=== PATIENT | female | born 1950 ===

== ENCOUNTER 2017-08-20 17:19 | Inpatient (IN) | payer MEDICARE ==
[2017-08-20] MEDS ORDERED: Sodium Chloride 0.9% 1,000 ML IV STA (18:03)
[2017-08-20 18:04] LABS: VENOUS BLOOD GAS PCO2 51 mmHg (40-60); VENOUS BLOOD GAS PO2 31 mm/Hg (30-55)
--- NOTE | 2017-08-20 18:07 | CT ---
EXAM: CT Head Without Intravenous Contrast CLINICAL HISTORY: 67 years old, female; Injury or trauma; Fall; Initial encounter; Laceration; With loss of consciousness; Not specified; Without residual foreign body; Head, generalized; Injury date: Earlier today; Patient HX: EVA; Additional info: AMS fall head injury TECHNIQUE: Axial computed tomography images of the head/brain without intravenous contrast. All CT scans at this facility use one or more dose reduction techniques, viz.: automated exposure control; ma/kV adjustment per patient size (including targeted exams where dose is matched to indication; i.e. head); or iterative reconstruction technique. Coronal and sagittal reformatted images were created and reviewed. COMPARISON: No relevant prior studies available. FINDINGS: Brain: Mild atrophy. No intracranial hemorrhage. No mass. No edema. Ventricles: No hydrocephalus. Bones/joints: No acute fracture. Soft tissues: Unremarkable. Vasculature: Mild atherosclerotic disease of intracranial arteries. Sinuses: No acute sinusitis. Mastoid air cells: No mastoid effusion. Orbits: Unremarkable as visualized. IMPRESSION: 1. No intracranial hemorrhage. 2. Incidental/non-acute findings are described above.
[2017-08-20 18:21] LABS: BASO % 0.1 % (0.0-2.0); HEMOGLOBIN 13.8 g/dL (12.0-16.0); LYMPH # 1.8 K/uL (1.0-4.3); LYMPH % 11.3 % (20.0-40.0); MEAN CELL VOLUME 90.6 fl (81.0-99.0); MEAN CORPUSCULAR HEMOGLOBIN 30.2 pg (27.0-31.0); MEAN CORPUSCULAR HGB CONC 33.3 g/dL (33.0-37.0); MEAN PLATELET VOLUME 8.5 fl (7.2-11.7); MONO % 6.7 % (0.0-10.0); NEUT # 12.7 K/uL (1.8-7.0); NEUT % 81.9 % (50.0-75.0); NRBC % 0.2 % (0.0-0.0); RBC 4.59 Mil/uL (3.80-5.20); RED CELL DISTRIBUTION WIDTH 12.6 % (11.5-14.5); WHITE BLOOD COUNT 15.5 K/uL (4.8-10.8)
[2017-08-20 18:30] LABS: ALB/GLOB RATIO 1.3 (1.0-2.1); ALBUMIN 4.3 g/dL (3.5-5.0); ALT/SGPT 54 U/L (9-52); AST/SGOT 39 U/L (14-36); BLOOD UREA NITROGEN 16 mg/dl (7-17); CALCIUM 9.6 mg/dL (8.4-10.2); GFR AFRICAN-AMERICAN > 60; GFR NON-AFRICAN AMERICAN 55
[2017-08-20 18:35] LABS: PROTHROMBIN TIME 10.8 Seconds (9.8-13.1)
[2017-08-20 18:36] LABS: PARTIAL THROMBOPLASTIN TIME 26.5 Seconds (25.6-37.1)
--- NOTE | 2017-08-20 20:01 | ED PDOC ---
Syncope/Near Syncope/Dizziness Time Seen by Provider: 08/20/17 17:39 Chief Complaint (Nursing): Syncope Chief Complaint (Provider): Syncope and head injury History Per: Patient History/Exam Limitations: no limitations Additional Complaint(s): Lalitha Bray, a 67 year old female brought into the Emergency Department by ambulance complaining of head injury and loss of consciousness after falling while getting into the showers. Reports she was feeling confused in the morning and felt weak too. The patient also has vomited about a week ago and has watery- like diarrhea. Denies fever or chest pain. PMD: Zunilda Steele Past Medical History Reviewed: Historical Data, Nursing Documentation, Vital Signs Vital Signs: Last Vital Signs Temp 96.6 F L 08/20/17 17:39 Pulse 87 08/20/17 19:05 Resp 16 08/20/17 19:05 BP 114/62 08/20/17 19:05 Pulse Ox 100 08/20/17 19:05 - Medical History PMH: Anxiety, HTN, Hyperlipidemia, Hyperthyroidism, Hypothyroidism, Osteoporosis - Surgical History Surgical History: Tonsillectomy - Family History Family History: States: Unknown Family Hx - Social History Alcohol: None Drugs: Denies - Home Medications Home Medications: Ambulatory Orders Medication Instructions Recorded Cholecalciferol (Vitamin D3) 1 tab PO DAILY 08/20/17 [D3-5000 90 mg-5000 Iu] Fenofibrate [Triglide] 160 mg PO DAILY 08/20/17 Losartan/Hydrochlorothiazide 1 each PO DAILY 08/20/17 [Losartan-Hctz 100-25 mg Tab] Metoprolol Succinate [Toprol XL] 50 mg PO DAILY 08/20/17 - Allergies Allergies/Adverse Reactions: Allergies Allergy/AdvReac Type Severity Reaction Status Date / Time No Known Allergies Allergy Verified 08/20/17 17:22 Review of Systems ROS Statement: Except As Marked, All Systems Reviewed And Found Negative Constitutional: Negative for: Fever, Chills Gastrointestinal: Positive for: Vomiting (1 week), Diarrhea (watery-like ) Neurological: Positive for: Weakness, Confusion Physical Exam - Reviewed Nursing Documentation Reviewed: Yes Vital Signs Reviewed: Yes - Physical Exam Appears: Positive for: Well, Non-toxic, No Acute Distress Head Exam: Positive for: ATRAUMATIC, NORMAL INSPECTION, NORMOCEPHALIC Skin: Positive for: Normal Color, Warm, Dry, Pallor Eye Exam: Positive for: Normal appearance, EOMI, PERRL ENT: Positive for: Normal ENT Inspection Neck: Positive for: Normal, Painless ROM Cardiovascular/Chest: Positive for: Regular Rate, Rhythm. Negative for: Murmur Respiratory: Positive for: Normal Breath Sounds. Negative for: Respiratory Distress Gastrointestinal/Abdominal: Positive for: Normal Exam Back: Positive for: Normal Inspection Extremity: Positive for: Normal ROM. Negative for: Deformity Neurologic/Psych: Positive for: Alert, Oriented (x3) - Laboratory Results Result Diagrams: 08/20/17 18:08 08/20/17 18:08 - ECG ECG: Positive for: Interpreted By Me, Viewed By Me ECG Rhythm: Positive for: Normal QRS, Normal ST Segment. Negative for: ST/T Changes Interpretation Of Abn EKG: left axis deviation Rate: 74 O2 Sat by Pulse Oximetry: 100 (RA) Pulse Ox Interpretation: Normal Medical Decision Making Medical Decision Making: Time: 17:41 Initial Impression: acute diarrhea, syncope, and head injury Differential Diagnosis includes but is not limited to: hypovolemic, shock with orthostatic, syncope, intracranial bleeding, and bacterial or viral diarrhea Initial Plan: --VBG Shock PANEL --Abdomen & Pelvis CT scan --Head W/O Contrast CT scan --EKG --Alcohol serum --CMP --Drug Screen --Troponin I --CBC --PPT --Prothrombin Time --Imodium 2mg PO --Normal Saline 1,000ml IV 1,000mls/hr --Normal Saline 125ml IV 125mls/hr --Blood culture --Reevaluation Patient was able to respond 30 minutes after recovering from syncope and dizziness Time: 21:19 FINDINGS: Brain: Mild atrophy. No intracranial hemorrhage. No mass. No edema. Ventricles: No hydrocephalus. Bones/joints: No acute fracture. Soft tissues: Unremarkable. Vasculature: Mild atherosclerotic disease of intracranial arteries. Sinuses: No acute sinusitis. Mastoid air cells: No mastoid effusion. Orbits: Unremarkable as visualized. IMPRESSION: 1. No intracranial hemorrhage. 2. Incidental/non-acute findings are described above. Dictated By: Leandro Laguna MD Dictated Date/Time: 08/20/171806 Signed By: Leandro Laguna MD Date Signed: 1806 Transcribed By: LUZ Transcribe Date/Time : 08/20/171806 ACYP02/CLIFFORD Time: 21:19 FINDINGS: Limitations: Lack of intravenous contrast. Lower thorax: Mild cardiomegaly. Trace bilateral pleural effusions and/or thickening. Minimal atelectasis/scarring. Moderate-sized hiatal hernia. ABDOMEN: Liver: Unremarkable. Gallbladder and bile ducts: Calcified gallstones. No significant ductal dilation. Pancreas: Unremarkable. No ductal dilation. Spleen: No splenomegaly. Adrenals: No mass. Kidneys and ureters: No renal calculi. No hydronephrosis. Stomach and bowel: Segmental areas of mild mural thickening vs underdistention of large bowel. Mild stranding about descending and proximal sigmoid colon. No obstruction. Appendix: Normal caliber. No inflammation. PELVIS: Bladder: Unremarkable. No stones. Reproductive: Unremarkable as visualized. ABDOMEN and PELVIS: Intraperitoneal space: Small free fluid within pelvis. No free air. Bones/joints: No acute fracture. Soft tissues: Unremarkable. Vasculature: Minimal atherosclerotic disease. No aneurysm. Lymph nodes: No pathologically enlarged lymph nodes. IMPRESSION: 1. Colitis, nonspecific. Consider inflammatory, infectious or ischemic etiologies. 2. Incidental/non-acute findings are described above. Dictated By: Leandro Laguna MD Dictated Date/Time: 08/20/172053 Signed By: Leandro Laguna MD Date Signed: 2053 Transcribed By: LUZ Transcribe Date/Time : 08/20/172053 Scribe Attestation: Documented by Marti Simmons, acting as a scribe for Ladonna Agosto MD Provider Scribe Attestation: All medical record entries made by the Scribe were at my direction and personally dictated by me. I have reviewed the chart and agree that the record accurately reflects my personal performance of the history, physical exam, medical decision making, and the department course for this patient. I have also personally directed, reviewed, and agree with the discharge instructions and disposition. Disposition - Clinical Impression Clinical Impression: Syncope, Colitis, Hypovolemic shock - Patient ED Disposition Is Patient to be Admitted: Yes Discussed With : Mary Joseph Doctor Will See Patient In The: ED Counseled Patient/Family Regarding: Studies Performed, Diagnosis - Disposition Disposition Time: 21:00 Condition: FAIR - Pt Status Changed To: Hospital Disposition Of: Inpatient - Admit Certification Admit to Inpatient:: After my assessment, the patient will require hospitalization for at least two midnights. This is because of the severity of symptoms shown, intensity of services needed, and/or the medical risk in this patient being treated as an outpatient. - POA Present On Arrival: Falls Or Trauma
[2017-08-20] MEDS ORDERED: Piperacillin/Tazobact 3.375 GM in Sodium Chloride 0.9% 100 ML IVPB STA (20:50)
--- NOTE | 2017-08-20 20:54 | CT ---
EXAM: CT Abdomen and Pelvis Without Intravenous Contrast CLINICAL HISTORY: 67 years old, female; Injury or trauma; Fall; Initial encounter; Laceration; Foreign body involvement not specified; Generalized, abdominal; Injury date: Today; Injury details: Falling off the shower. Disoriented abd pain n v d; Additional info: Diarrhea abdominal pain TECHNIQUE: Axial computed tomography images of the abdomen and pelvis without intravenous contrast. All CT scans at this facility use one or more dose reduction techniques, viz.: automated exposure control; ma/kV adjustment per patient size (including targeted exams where dose is matched to indication; i.e. head); or iterative reconstruction technique. COMPARISON: US - ABDOMEN COMPLETE 2015-06-27 07:54 FINDINGS: Limitations: Lack of intravenous contrast. Lower thorax: Mild cardiomegaly. Trace bilateral pleural effusions and/or thickening. Minimal atelectasis/scarring. Moderate-sized hiatal hernia. ABDOMEN: Liver: Unremarkable. Gallbladder and bile ducts: Calcified gallstones. No significant ductal dilation. Pancreas: Unremarkable. No ductal dilation. Spleen: No splenomegaly. Adrenals: No mass. Kidneys and ureters: No renal calculi. No hydronephrosis. Stomach and bowel: Segmental areas of mild mural thickening vs underdistention of large bowel. Mild stranding about descending and proximal sigmoid colon. No obstruction. Appendix: Normal caliber. No inflammation. PELVIS: Bladder: Unremarkable. No stones. Reproductive: Unremarkable as visualized. ABDOMEN and PELVIS: Intraperitoneal space: Small free fluid within pelvis. No free air. Bones/joints: No acute fracture. Soft tissues: Unremarkable. Vasculature: Minimal atherosclerotic disease. No aneurysm. Lymph nodes: No pathologically enlarged lymph nodes. IMPRESSION: 1. Colitis, nonspecific. Consider inflammatory, infectious or ischemic etiologies. 2. Incidental/non-acute findings are described above.
[2017-08-20] MEDS ORDERED: Ciprofloxacin 400mg/200ml D5W 400 MG/200 ML BAG IVPB STA (21:21)
[2017-08-20] MEDS ORDERED: metroNIDAZOLE 500mg/100ml NS 100 ML IVPB STA (21:22)
--- NOTE | 2017-08-20 21:23 | CP.PCM.HP ---
History of Present Illness - History of Present Illness History of Present Illness: CC: n/v/d, syncope HPI: This is a 67 y/o female with MHx of HTN, HLD, and hypothyroid who came in via EMS after a fall and LOC in shower this evening. Patient has had n/v/d and abd discomfort for a week, and she had been feeling more and more weak overall by today, as well as confused. Her v/d was nb/nb. Denies f/c. Denies CP/SOB. Denies any focal weakness. Never had syncope in the past. PMD: Merle Otoniel-Matilda ROS: 14 systems reviewed, negative other than HPI MHx: HTN, HLD, hypothyroid, osteoporosis SHx: Tonsillectomy Allergies: NKDA Medications: as per med rec, pending Family Hx: Reviewed, patient unaware of any significant family hx Social Hx: Lives with family, no tobacco, no EtOH Surrogate Dec Mkr: , info in chart Present on Admission - Present on Admission Any Indicators Present on Admission: No Past Patient History - Past Social History Alcohol: None Drugs: Denies - CARDIAC Hx Hypertension: Yes - ENDOCRINE/METABOLIC Hx Hyperthyroidism: Yes Hx Hypothyroidism: Yes - MUSCULOSKELETAL/RHEUMATOLOGICAL Hx Osteoporosis: Yes - PSYCHIATRIC Hx Anxiety: Yes - SURGICAL HISTORY Hx Tonsillectomy: Yes - ANESTHESIA Hx Anesthesia: Yes Hx Anesthesia Reactions: No Meds Allergies/Adverse Reactions: Allergies Allergy/AdvReac Type Severity Reaction Status Date / Time No Known Allergies Allergy Verified 08/20/17 17:22 Physical Exam - Constitutional Appears: No Acute Distress - Head Exam Head Exam: ATRAUMATIC, NORMOCEPHALIC - Eye Exam Eye Exam: EOMI, PERRL - ENT Exam ENT Exam: Mucous Membranes Dry - Neck Exam Neck exam: Positive for: Full Rom - Respiratory Exam Respiratory Exam: Clear to Auscultation Bilateral, NORMAL BREATHING PATTERN - Cardiovascular Exam Cardiovascular Exam: REGULAR RHYTHM, +S1, +S2 - GI/Abdominal Exam GI & Abdominal Exam: Normal Bowel Sounds, Soft - Extremities Exam Extremities exam: Positive for: full ROM, normal inspection - Neurological Exam Neurological exam: Alert, CN II-XII Intact, Oriented x3 - Psychiatric Exam Psychiatric exam: Normal Affect, Normal Mood - Skin Skin Exam: Dry, Warm Results - Vital Signs Recent Vital Signs: Last Vital Signs Temp 96.6 F L 08/20/17 17:39 Pulse 74 08/20/17 21:20 Resp 16 08/20/17 19:05 BP 114/62 08/20/17 19:05 Pulse Ox 100 08/20/17 21:20 - Labs Result Diagrams: 08/20/17 18:08 08/20/17 18:08 Labs: Laboratory Results - last 24 hr 08/20/17 08/20/17 08/20/17 17:58 18:08 18:08 WBC 15.5 H RBC 4.59 Hgb 13.8 Hct 41.6 MCV 90.6 MCH 30.2 MCHC 33.3 RDW 12.6 Plt Count 361 MPV 8.5 Neut % (Auto) 81.9 H Lymph % (Auto) 11.3 L [place] % (Auto) 6.7 Eos % (Auto) 0.0 Baso % (Auto) 0.1 Neut # 12.7 H Lymph # 1.8 [place] # 1.0 H Eos # 0.0 Baso # 0.0 PT INR APTT pO2 31 VBG pH 7.30 L VBG pCO2 51 VBG HCO3 22.1 VBG Total CO2 26.7 VBG O2 Sat (Calc) 61.7 VBG Base Excess -2.0 L VBG Potassium 3.6 Sodium 140.0 140 Chloride 100.0 103 Glucose 147 H Lactate 1.4 FiO2 21.0 Potassium 3.6 Carbon Dioxide 23 Anion Gap 18 BUN 16 Creatinine 1.0 Est GFR ( Amer) > 60 Est GFR (Non-Af Amer) 55 Random Glucose 160 H Calcium 9.6 Total Bilirubin 0.8 AST 39 H ALT 54 H Alkaline Phosphatase 78 Troponin I 0.0160 Total Protein 7.7 Albumin 4.3 Globulin 3.4 Albumin/Globulin Ratio 1.3 Venous Blood Potassium 3.6 Alcohol, Quantitative < 10 08/20/17 18:08 WBC RBC Hgb Hct MCV MCH MCHC RDW Plt Count MPV Neut % (Auto) Lymph % (Auto) [place] % (Auto) Eos % (Auto) Baso % (Auto) Neut # Lymph # [place] # Eos # Baso # PT 10.8 INR 1.0 APTT 26.5 pO2 VBG pH VBG pCO2 VBG HCO3 VBG Total CO2 VBG O2 Sat (Calc) VBG Base Excess VBG Potassium Sodium Chloride Glucose Lactate FiO2 Potassium Carbon Dioxide Anion Gap BUN Creatinine Est GFR ( Amer) Est GFR (Non-Af Amer) Random Glucose Calcium Total Bilirubin AST ALT Alkaline Phosphatase Troponin I Total Protein Albumin Globulin Albumin/Globulin Ratio Venous Blood Potassium Alcohol, Quantitative - EKG Data EKG Interpreted by: Myself EKG shows normal: Sinus rhythm Rate: Normal - Imaging and Cardiology CT scan - head Status: Image reviewed by me, Report reviewed by me (no acute findings) CT scan - abdomen Status: Image reviewed by me (Colitis), Report reviewed by me (Colitis) Assessment & Plan (1) Syncope and collapse Assessment and Plan: 67 y/o female with syncope/collapse in setting of vol depletion 2/2 colitis with n/v/d. 1) Syncope/Collapse -Rehydrate aggresively -Will check 1 more troponin -If symptoms still concerning after hydration, consider echo for further w/u of syncope 2) Colitis with n/v/d -Cont cipro/flagyl IV -IVF -Zofran for n/v IV, Tylenol for fever 3) HTN, HLD -- resume home medications 4) Hypothyroid -- resume home medications 5) DVT PPx -- SCDs Status: Acute (2) Colitis Status: Acute (3) HTN (hypertension) Status: Acute (4) HLD (hyperlipidemia) Status: Acute (5) DVT prophylaxis Status: Acute
[2017-08-20] MEDS ORDERED: Ciprofloxacin 400mg/200ml D5W 400 MG/200 ML BAG IVPB ONE (22:21)
[2017-08-21] MEDS: Sodium Chloride 0.9% 1,000 ML IV SCH ×2 (00:45→13:10)
[2017-08-21 05:21] LABS: HEMOGLOBIN 11.4 g/dL (12.0-16.0); MEAN CELL VOLUME 90.9 fl (81.0-99.0); MEAN CORPUSCULAR HEMOGLOBIN 30.5 pg (27.0-31.0); MEAN CORPUSCULAR HGB CONC 33.5 g/dL (33.0-37.0); RBC 3.73 Mil/uL (3.80-5.20); RED CELL DISTRIBUTION WIDTH 12.6 % (11.5-14.5); WHITE BLOOD COUNT 9.7 K/uL (4.8-10.8)
[2017-08-21 05:35] LABS: BLOOD UREA NITROGEN 11 mg/dl (7-17); CALCIUM 8.6 mg/dL (8.4-10.2); GFR AFRICAN-AMERICAN > 60; GFR NON-AFRICAN AMERICAN > 60
--- NOTE | 2017-08-21 08:22 | RAD ---
HISTORY: syncope COMPARISON: No prior. FINDINGS: LUNGS: No active pulmonary disease. PLEURA: No significant pleural effusion identified, no pneumothorax apparent. CARDIOVASCULAR: Borderline cardiomegaly versus technical magnification given portable technique. OSSEOUS STRUCTURES: No significant abnormalities. VISUALIZED UPPER ABDOMEN: Normal. OTHER FINDINGS: None. IMPRESSION: Likely technically enlarged cardiac silhouette. No pulmonary vascular derangement. No acute infiltrate, pleural effusion or pneumothorax identified bilaterally.
[2017-08-21] MEDS ORDERED: metroNIDAZOLE 500mg/100ml NS 100 ML IVPB SCH (09:00)
[2017-08-21] MEDS: Ciprofloxacin 400mg/200ml D5W 400 MG/200 ML BAG IVPB SCH ×2 (09:47→20:29)
--- NOTE | 2017-08-21 10:28 | CP.PCM.PN ---
Subjective - Date & Time of Evaluation Date of Evaluation: 08/21/17 Time of Evaluation: 10:00 - Subjective Subjective: No fever no nausea vomiting at present some abd discomfort diarrhea better refuses to eat bec she is scared she will have more diarrhea denies CP no SOB no headache no dizziness alert, oriented x 3 some right hip pain but able to do full ROM denies back pain Objective - Vital Signs/Intake and Output Vital Signs (last 24 hours): Temp Pulse Resp BP Pulse Ox 98.2 F 63 18 94/54 L 99 08/21/17 08:18 08/21/17 08:18 08/21/17 08:18 08/21/17 08:18 08/21/17 08:18 - Medications Medications: Current Medications Acetaminophen (Tylenol 325mg Tab) 650 mg PO Q6 PRN PRN Reason: Fever >100.4 F Alprazolam (Xanax) 0.25 mg PO Q12 PRN PRN Reason: Anxiety Stop: 08/28/17 09:14 Sodium Chloride (Sodium Chloride 0.9%) 1,000 mls @ 100 mls/hr IV .Q10H MARYURI Stop: 08/21/17 17:29 Last Admin: 08/21/17 00:45 Dose: 100 mls/hr Ciprofloxacin (Cipro 400mg/200ml Dsw) 400 mg in 200 mls @ 200 mls/hr IVPB Q12 MARYURI PRN Reason: Protocol Last Admin: 08/21/17 09:47 Dose: 200 mls/hr Potassium Chloride 10 meq/ (Sodium Chloride) 55 mls @ 55 mls/hr IV Q1 MARYURI Stop: 08/21/17 11:59 Last Admin: 08/21/17 09:54 Dose: 55 mls/hr Metronidazole (Flagyl 500mg/100ml Ns) 100 mls @ 100 mls/hr IVPB Q8 MARYURI PRN Reason: Protocol Ondansetron HCl (Zofran Inj) 4 mg IVP Q6 PRN PRN Reason: Nausea/Vomiting - Labs Labs: 08/21/17 04:20 08/21/17 04:20 PT 10.8 Seconds (9.8-13.1) 08/20/17 18:08 INR 1.0 (0.9-1.2) 08/20/17 18:08 APTT 26.5 Seconds (25.6-37.1) 08/20/17 18:08 - Constitutional Appears: No Acute Distress - Head Exam Head Exam: NORMAL INSPECTION, NORMOCEPHALIC - Eye Exam Eye Exam: EOMI - ENT Exam ENT Exam: Mucous Membranes Dry, Normal External Ear Exam - Neck Exam Neck Exam: Full ROM. absent: Meningismus - Respiratory Exam Respiratory Exam: NORMAL BREATHING PATTERN. absent: Respiratory Distress - Cardiovascular Exam Cardiovascular Exam: REGULAR RHYTHM, +S1, +S2 - GI/Abdominal Exam GI & Abdominal Exam: Soft, Tenderness, Normal Bowel Sounds - Extremities Exam Extremities Exam: Full ROM, Normal Capillary Refill. absent: Calf Tenderness - Back Exam Back Exam: Full ROM. absent: CVA tenderness (L), CVA tenderness (R) - Neurological Exam Neurological Exam: Alert, Awake, CN II-XII Intact, Oriented x3 Neuro motor strength exam: Left Upper Extremity: 5, Right Upper Extremity: 5, Left Lower Extremity: 5, Right Lower Extremity: 5 - Psychiatric Exam Psychiatric exam: Normal Affect, Normal Mood - Skin Skin Exam: Dry, Normal Color, Warm Assessment and Plan - Assessment and Plan (Free Text) Assessment: 67 y/o lady with hx of HTN, Hyperlipidemia, Hypothyroidism, was brought in after a fal. Patient has been having diarrhea the past few days , feltt very weak and had a syncopal episode in the bathroom (1) Syncope and collapse likely sec to Volume Depletion/Dehydration -IVF hydration - CT of head negative, no hemorrhage - Troponin negative x 2 -If symptoms still concerning after hydration, consider echo for further w/u of syncope (2) Colitis Status: Acute Pt had diarrhea , N/V CT of abd : Colitis changes Leukocytosis 15K cont IV Cipro and Flagyl stool culture, WBC, O&P ID consult - Dr Draper 3. Fall , Hip Pain CT of head neg Hip and Pelvic xray PT consult (4) HTN (hypertension) Status: Acute hold off antihypertensive due to low BP 5. Hypothyroidism check TSH cont Levothyroxine- will ask to bring in med as pt could not remember dose 6. Anxiety -cont Xanax prn ( pt takes 0.25 mg prn at home ) DVT prophylaxis Status: Acute Lovenox
--- NOTE | 2017-08-21 11:47 | CP.PCM.CON ---
History of Present Illness - History of Present Illness History of Present Illness: Infectious Disease consultation Note- Asked to see this patient at the request of hospitalist for help with abx management for colitis. HPI- Patient is a 67 year old female with pmh of HTN, HLD , hypothyroidism who was admitted with c/o nausea and abdominal pain mostly in left lower abdomen for past week.. denies any fever or chills, denies any diarrhea, denies any dysurea. pt. was found to have colitis on abd Ct report and has been started on IV cipro and flagyl as per primary team. Patient states she feels better compared to yesterday adn her abdominal pain is less. she states she does not have much appetite yet. MHx: HTN, HLD, hypothyroid, osteoporosis SHx: Tonsillectomy Allergies: NKDA Medications: as per med rec, pending Family Hx: Reviewed, patient unaware of any significant family hx Social Hx: Lives with family, no tobacco, no EtOH Review of Systems - Review of Systems Review of Systems: ROS- denies any fever or chills, denies any GASCA, denies any cough, denies any sob, denies any chest pain, had pain in LLQ, had some nausea but not now, denies any diarrhea, denies any dysurea. Past Patient History - Past Medical History & Family History Past Medical History?: Yes - Past Social History Smoking Status: Never Smoked Alcohol: None Drugs: Denies Home Situation {Lives}: With Family - CARDIAC Hx Cardiac Disorders: Yes Hx Hypercholesterolemia: Yes Hx Hypertension: Yes - PULMONARY Hx Respiratory Disorders: No - NEUROLOGICAL Hx Neurological Disorder: No - HEENT Hx HEENT Problems: Yes Other/Comment: Dentures - RENAL Hx Chronic Kidney Disease: No - ENDOCRINE/METABOLIC Hx Endocrine Disorders: Yes Hx Hypothyroidism: Yes - HEMATOLOGICAL/ONCOLOGICAL Hx Blood Disorders: No - INTEGUMENTARY Hx Dermatological Problems: No - MUSCULOSKELETAL/RHEUMATOLOGICAL Hx Musculoskeletal Disorders: Yes Hx Falls: Yes Hx Osteoporosis: Yes - GASTROINTESTINAL Hx Gastrointestinal Disorders: No - GENITOURINARY/GYNECOLOGICAL Hx Genitourinary Disorders: No - PSYCHIATRIC Hx Psychophysiologic Disorder: Yes Hx Anxiety: Yes Hx Substance Use: No - SURGICAL HISTORY Hx Surgeries: Yes Hx Tonsillectomy: Yes - ANESTHESIA Hx Anesthesia: Yes Hx Anesthesia Reactions: No Meds Allergies/Adverse Reactions: Allergies Allergy/AdvReac Type Severity Reaction Status Date / Time No Known Allergies Allergy Verified 08/20/17 17:22 - Medications Medications: Current Medications Acetaminophen (Tylenol 325mg Tab) 650 mg PO Q6 PRN PRN Reason: Fever >100.4 F Alprazolam (Xanax) 0.25 mg PO Q12 PRN PRN Reason: Anxiety Stop: 08/28/17 09:14 Sodium Chloride (Sodium Chloride 0.9%) 1,000 mls @ 100 mls/hr IV .Q10H [facility] Stop: 08/21/17 17:29 Last Admin: 08/21/17 00:45 Dose: 100 mls/hr Ciprofloxacin (Cipro 400mg/200ml Dsw) 400 mg in 200 mls @ 200 mls/hr IVPB Q12 MARYURI PRN Reason: Protocol Last Admin: 08/21/17 09:47 Dose: 200 mls/hr Potassium Chloride 10 meq/ (Sodium Chloride) 55 mls @ 55 mls/hr IV Q1 MARYURI Stop: 08/21/17 11:59 Last Admin: 08/21/17 09:54 Dose: 55 mls/hr Metronidazole (Flagyl 500mg/100ml Ns) 100 mls @ 100 mls/hr IVPB Q8 MARYURI PRN Reason: Protocol Ondansetron HCl (Zofran Inj) 4 mg IVP Q6 PRN PRN Reason: Nausea/Vomiting Physical Exam - Constitutional Appears: Non-toxic, No Acute Distress - Head Exam Head Exam: ATRAUMATIC - Eye Exam Eye Exam: EOMI, PERRL - ENT Exam ENT Exam: Normal Oropharynx - Neck Exam Neck exam: Positive for: Full Rom - Respiratory Exam Respiratory Exam: Clear to Auscultation Bilateral, NORMAL BREATHING PATTERN - Cardiovascular Exam Cardiovascular Exam: RRR, +S1, +S2 - GI/Abdominal Exam GI & Abdominal Exam: Normal Bowel Sounds, Soft Additional comments: minimal tenderness in Left lower abdomen only No guarding, no rebound normal BS - Extremities Exam Extremities exam: Positive for: normal inspection - Neurological Exam Neurological exam: Alert, Oriented x3 Results - Vital Signs Recent Vital Signs: Last Vital Signs Temp 98.2 F 08/21/17 08:18 Pulse 63 08/21/17 08:18 Resp 18 08/21/17 08:18 BP 94/54 L 08/21/17 08:18 Pulse Ox 99 01/22/18 08:18 - Labs Result Diagrams: 08/21/17 04:20 08/21/17 04:20 Labs: Laboratory Results - last 24 hr 08/20/17 08/20/17 08/20/17 17:58 18:08 18:08 WBC 15.5 H RBC 4.59 Hgb 13.8 Hct 41.6 MCV 90.6 MCH 30.2 MCHC 33.3 RDW 12.6 Plt Count 361 MPV 8.5 Neut % (Auto) 81.9 H Lymph % (Auto) 11.3 L [place] % (Auto) 6.7 Eos % (Auto) 0.0 Baso % (Auto) 0.1 Neut # 12.7 H Lymph # 1.8 [place] # 1.0 H Eos # 0.0 Baso # 0.0 PT INR APTT pO2 31 VBG pH 7.30 L VBG pCO2 51 VBG HCO3 22.1 VBG Total CO2 26.7 VBG O2 Sat (Calc) 61.7 VBG Base Excess -2.0 L VBG Potassium 3.6 Sodium 140.0 140 Chloride 100.0 103 Glucose 147 H Lactate 1.4 FiO2 21.0 Potassium 3.6 Carbon Dioxide 23 Anion Gap 18 BUN 16 Creatinine 1.0 Est GFR ( Amer) > 60 Est GFR (Non-Af Amer) 55 Random Glucose 160 H Calcium 9.6 Total Bilirubin 0.8 AST 39 H ALT 54 H Alkaline Phosphatase 78 Troponin I 0.0160 Total Protein 7.7 Albumin 4.3 Globulin 3.4 Albumin/Globulin Ratio 1.3 Venous Blood Potassium 3.6 Alcohol, Quantitative < 10 08/20/17 08/21/17 08/21/17 18:08 04:20 04:20 WBC 9.7 RBC 3.73 L Hgb 11.4 L D Hct 33.9 L MCV 90.9 MCH 30.5 MCHC 33.5 RDW 12.6 Plt Count 258 D MPV Neut % (Auto) Lymph % (Auto) [place] % (Auto) Eos % (Auto) Baso % (Auto) Neut # Lymph # [place] # Eos # Baso # PT 10.8 INR 1.0 APTT 26.5 pO2 VBG pH VBG pCO2 VBG HCO3 VBG Total CO2 VBG O2 Sat (Calc) VBG Base Excess VBG Potassium Sodium 143 Chloride 106 Glucose Lactate FiO2 Potassium 3.3 L Carbon Dioxide 27 Anion Gap 13 BUN 11 Creatinine 0.9 Est GFR ( Amer) > 60 Est GFR (Non-Af Amer) > 60 Random Glucose 100 Calcium 8.6 Total Bilirubin AST ALT Alkaline Phosphatase Troponin I 0.0140 Total Protein Albumin Globulin Albumin/Globulin Ratio Venous Blood Potassium Alcohol, Quantitative Laboratory Results - last 72 hr 08/20/17 08/20/17 08/20/17 17:58 18:08 18:08 WBC 15.5 H RBC 4.59 Hgb 13.8 Hct 41.6 MCV 90.6 MCH 30.2 MCHC 33.3 RDW 12.6 Plt Count 361 MPV 8.5 Neut % (Auto) 81.9 H Lymph % (Auto) 11.3 L [place] % (Auto) 6.7 Eos % (Auto) 0.0 Baso % (Auto) 0.1 Neut # 12.7 H Lymph # 1.8 [place] # 1.0 H Eos # 0.0 Baso # 0.0 PT INR APTT pO2 31 VBG pH 7.30 L VBG pCO2 51 VBG HCO3 22.1 VBG Total CO2 26.7 VBG O2 Sat (Calc) 61.7 VBG Base Excess -2.0 L VBG Potassium 3.6 Sodium 140.0 140 Chloride 100.0 103 Glucose 147 H Lactate 1.4 FiO2 21.0 Potassium 3.6 Carbon Dioxide 23 Anion Gap 18 BUN 16 Creatinine 1.0 Est GFR ( Amer) > 60 Est GFR (Non-Af Amer) 55 Random Glucose 160 H Calcium 9.6 Total Bilirubin 0.8 AST 39 H ALT 54 H Alkaline Phosphatase 78 Troponin I 0.0160 Total Protein 7.7 Albumin 4.3 Globulin 3.4 Albumin/Globulin Ratio 1.3 Venous Blood Potassium 3.6 Alcohol, Quantitative < 10 08/20/17 08/21/17 08/21/17 18:08 04:20 04:20 WBC 9.7 RBC 3.73 L Hgb 11.4 L D Hct 33.9 L MCV 90.9 MCH 30.5 MCHC 33.5 RDW 12.6 Plt Count 258 D MPV Neut % (Auto) Lymph % (Auto) [place] % (Auto) Eos % (Auto) Baso % (Auto) Neut # Lymph # [place] # Eos # Baso # PT 10.8 INR 1.0 APTT 26.5 pO2 VBG pH VBG pCO2 VBG HCO3 VBG Total CO2 VBG O2 Sat (Calc) VBG Base Excess VBG Potassium Sodium 143 Chloride 106 Glucose Lactate FiO2 Potassium 3.3 L Carbon Dioxide 27 Anion Gap 13 BUN 11 Creatinine 0.9 Est GFR ( Amer) > 60 Est GFR (Non-Af Amer) > 60 Random Glucose 100 Calcium 8.6 Total Bilirubin AST ALT Alkaline Phosphatase Troponin I 0.0140 Total Protein Albumin Globulin Albumin/Globulin Ratio Venous Blood Potassium Alcohol, Quantitative Accession No. : [id number] Patient Name / ID : HOLLY Morataya / [id number] Exam Date : 08/20/2017 20:27:50 ( Approved ) Study Comment : Sex / Age : F / 67Y Creator : Leandro Laguna MD Dictator : Sales Support Coordinator : Solid Waste Disposal Manager : Leandro Laguna MD Approver2 : Report Date : 08/20/2017 20:54:00 My Comment : [facility] Division of Radiology [address] [place] [address] Tel. no. Patient Name: ARCELIA BARRERA Pt. Address: [address] [place] [address]. Rec #: [id number] [place] [address]: Surendra WALDEN, Ladonna Mars Pt Order Location: [facility] : 1950 Female Age: 67 Order #: [id number] Reason for exam: diarrhea abdominal pain CT Scan ABD PELVIS W/O PO OR IV CONT Exam Date: 08/20/17 This imaging exam was performed at [facility] (Formerly [facility]3] EXAM: CT Abdomen and Pelvis Without Intravenous Contrast CLINICAL HISTORY: 67 years old, female; Injury or trauma; Fall; Initial encounter; Laceration; Foreign body involvement not specified; Generalized, abdominal; Injury date: Today; Injury details: Falling off the shower. Disoriented abd pain n v d; Additional info: Diarrhea abdominal pain TECHNIQUE: Axial computed tomography images of the abdomen and pelvis without intravenous contrast. All CT scans at this facility use one or more dose reduction techniques, viz.: automated exposure control; ma/kV adjustment per patient size (including targeted exams where dose is matched to indication; i.e. head); or iterative reconstruction technique. COMPARISON: US - ABDOMEN COMPLETE 2015-06-27 07:54 FINDINGS: Limitations: Lack of intravenous contrast. Lower thorax: Mild cardiomegaly. Trace bilateral pleural effusions and/or thickening. Minimal atelectasis/scarring. Moderate-sized hiatal hernia. ABDOMEN: Liver: Unremarkable. Gallbladder and bile ducts: Calcified gallstones. No significant ductal dilation. Pancreas: Unremarkable. No ductal dilation. Spleen: No splenomegaly. Adrenals: No mass. Kidneys and ureters: No renal calculi. No hydronephrosis. Stomach and bowel: Segmental areas of mild mural thickening vs underdistention of large bowel. Mild stranding about descending and proximal sigmoid colon. No obstruction. Appendix: Normal caliber. No inflammation. PELVIS: Bladder: Unremarkable. No stones. Reproductive: Unremarkable as visualized. ABDOMEN and PELVIS: Intraperitoneal space: Small free fluid within pelvis. No free air. Bones/joints: No acute fracture. Soft tissues: Unremarkable. Vasculature: Minimal atherosclerotic disease. No aneurysm. Lymph nodes: No pathologically enlarged lymph nodes. IMPRESSION: 1. Colitis, nonspecific. Consider inflammatory, infectious or ischemic etiologies. 2. Incidental/non-acute findings are described above. Dictated By: Leandro Laguna MD Dictated Date/Time: 08/20/172053 Signed By: Leandro Laguna MD Date Signed: 2053 Transcribed By: LUZ Transcribe Date/Time : 08/20/172053 ACYP02/VRD Accession No. : [id number] Patient Name / ID : HOLLY Morataya / [id number] Exam Date : 08/20/2017 17:52:11 ( Approved ) Study Comment : Sex / Age : F / 67Y Creator : Emir Camacho MD Dictator : Emir Camacho MD Sales Support Coordinator : Solid Waste Disposal Manager : Emir Camacho MD Approver2 : Report Date : 08/21/2017 08:20:57 My Comment : HISTORY: syncope COMPARISON: No prior. FINDINGS: LUNGS: No active pulmonary disease. PLEURA: No significant pleural effusion identified, no pneumothorax apparent. CARDIOVASCULAR: Borderline cardiomegaly versus technical magnification given portable technique. OSSEOUS STRUCTURES: No significant abnormalities. VISUALIZED UPPER ABDOMEN: Normal. OTHER FINDINGS: None. IMPRESSION: Likely technically enlarged cardiac silhouette. No pulmonary vascular derangement. No acute infiltrate, pleural effusion or pneumothorax identified bilaterally. Assessment & Plan (1) Colitis Status: Acute (2) HTN (hypertension) Status: Acute - Assessment and Plan (Free Text) Assessment: A/P- 67 year old female presented with abd pain and found to have colitis on Ct report. pt. looks clinically well. afebrile normal wbc count. plan- advise to continue with current antibiotics initiated by hospitalist , namely cipro and flagyl IV. day #2. check stool cx. GI evaluation. all above d/w patient and she verbalizes full understanding of all above and agrees with above plan of care. Thank you for allowing me to take part in the care of this patient.
--- NOTE | 2017-08-21 14:57 | PQF GENQUE ---
Dr. Payton, Etiology of Syncope? if known after the work up is completed OR: Unable to determine B/P: 91/62->114/62----93/55->93/51->94/54 ER documentation: complaining of head injury and LOC after falling while getting into the showers, she was feeling confused in the morning and felt weak too, has vomited about a week ago and has watery-like diarrhea ROS: Gastrointestinal: Positive for: Vomiting (1 week), Diarrhea (watery-like ) Neuro: Positive for: Weakness, Confusion Clinical Impression: Syncope, Colitis, Hypovolemic shock POA; Falls Or Trauma H and P ; n via EMS after a fall and LOC in shower this evening. Patient has had n/v/d and abd discomfort for a week, and she had been feeling more and more weak overall by today, as well as confused. 67 y/o female with syncope/collapse in setting of vol depletion 2/2 colitis with n/v/d. dxs. include: 1) Syncope/Collapse -Rehydrate aggresively -Will check 1 more troponin -If symptoms still concerning after hydration, consider echo for further w/u of syncope This form is a permanent part of the medical record Clarification of your documentation is requested to better reflect the severity of illness and intensity of treatment of your patient. Indicators present [] Specify: [] [] Specify: [] [] Specify: [] [] Specify: [] Location in the medical record that reflects the above clinical findings: [] Treatment Provided: [] PHYSICIAN'S RESPONSE Syncope likely sec to Volume Depletion/Dehydration due to Diarrhea Based on your medical judgment of the clinical indicators outlined above please clarify the following: [] Practitioner response [] If unable to determine, please check the box, sign and date. Present On Admission (POA) Indicator: [] Present at the time of admission [] Not present at the time of admission [] Clinically Undetermined In responding to this query, please exercise your independent professional judgment. The fact that a question is asked does not imply that any particular answer is desired or expected. Thank you for your clarification on this documentation. If you have any questions please call. * Thank you, Ibis Howard RN ext. #[phone] MTDD
[2017-08-21] MEDS: metroNIDAZOLE 500mg/100ml NS 100 ML IVPB SCH (17:49)
--- NOTE | 2017-08-21 18:10 | RAD ---
PROCEDURE: Radiographs of the pelvis and bilateral hips HISTORY: Fall COMPARISON: None. FINDINGS: BONES: Pelvis: Unremarkable. Right hip:Unremarkable. Left hip:Unremarkable. JOINTS: Right hip: Mild degenerative change. Left hip: Symmetrical degenerative change. Sacroiliac Joints: Unremarkable. Pubic symphysis: Unremarkable. SOFT TISSUES: Normal. OTHER FINDINGS: None. IMPRESSION: No acute findings related to/accounting for the clinical presentation.
--- NOTE | 2017-08-21 18:28 | CARD ---
APPROVED REPORT EKG Measurement Heart [id number] VT [id number] <Conclusion> Normal sinus rhythm Left axis deviation Nonspecific T wave abnormality Abnormal ECG
[2017-08-21] MEDS ORDERED: Potassium Chloride 10 MEQ in Dextrose 5%/0.9% NS 1,000 ML IV SCH (18:30)
[2017-08-21 22:34] VITALS: RESP 18
[2017-08-22] MEDS: metroNIDAZOLE 500mg/100ml NS 100 ML IVPB SCH ×2 (00:45→08:47)
[2017-08-22 06:12] LABS: HEMOGLOBIN 10.1 g/dL (12.0-16.0); MEAN CELL VOLUME 90.8 fl (81.0-99.0); MEAN CORPUSCULAR HEMOGLOBIN 30.6 pg (27.0-31.0); MEAN CORPUSCULAR HGB CONC 33.7 g/dL (33.0-37.0); RBC 3.29 Mil/uL (3.80-5.20); RED CELL DISTRIBUTION WIDTH 12.5 % (11.5-14.5); WHITE BLOOD COUNT 6.2 K/uL (4.8-10.8)
[2017-08-22 06:20] LABS: ALB/GLOB RATIO 1.1 (1.0-2.1); ALBUMIN 2.9 g/dL (3.5-5.0); ALT/SGPT 36 U/L (9-52); AST/SGOT 35 U/L (14-36); BLOOD UREA NITROGEN 8 mg/dl (7-17); CALCIUM 8.4 mg/dL (8.4-10.2); GFR AFRICAN-AMERICAN > 60; GFR NON-AFRICAN AMERICAN > 60
[2017-08-22] MEDS ORDERED: Levothyroxine 88 MCG TAB PO SCH (06:30)
[2017-08-22] MEDS: Ciprofloxacin 400mg/200ml D5W 400 MG/200 ML BAG IVPB SCH (08:46)
[2017-08-22] MEDS ORDERED: Patient's Own Med (Fenofibrate [Triglide] 160 MG) PO SCH (09:00)
[2017-08-22] MEDS ORDERED: Enoxaparin 40 mg Syringe SC SCH (09:00)
[2017-08-22] MEDS ORDERED: Patient's Own Med (Cholecalciferol (Vitamin D3) [Vitamin D3] 1 TAB) PO SCH (09:00)
[2017-08-22 09:37] LABS: SQUAMOUS EPITHIAL 13 /hpf (0-5); URINE BACTERIA RARE (<OCC); URINE BILIRUBIN NEGATIVE (NEGATIVE); URINE BLOOD NEGATIVE (NEGATIVE); URINE CLARITY CLOUDY (Clear); URINE COLOR AMBER (YELLOW); URINE GLUCOSE (UA) NEG (Normal); URINE LEUKOCYTE ESTERASE SMALL Leu/uL (Negative); URINE NITRATE NEGATIVE (NEGATIVE); URINE PROTEIN NEGATIVE (NEGATIVE); URINE UROBILINOGEN 0.2-1.0 mg/dL (0.2-1.0)
--- NOTE | 2017-08-22 12:07 | CP.PCM.DIS ---
Provider - Provider Date of Admission: 08/20/17 21:22 Attending physician: Mary Joseph MD Time Spent in preparation of Discharge (in minutes): 30 Diagnosis - Discharge Diagnosis (1) Colitis Status: Acute Hospital Course - Lab Results Lab Results: Micro Results 08/20/17 18:59 Blood Blood Culture - Preliminary NO GROWTH AFTER 24 HOURS 08/20/17 18:08 Blood Blood Culture - Preliminary NO GROWTH AFTER 24 HOURS Most Recent Lab Values WBC 6.2 K/uL (4.8-10.8) 08/22/17 04:25 RBC 3.29 Mil/uL (3.80-5.20) L 08/22/17 04:25 Hgb 10.1 g/dL (12.0-16.0) L 08/22/17 04:25 Hct 29.9 % (34.0-47.0) L 08/22/17 04:25 MCV 90.8 fl (81.0-99.0) 08/22/17 04:25 MCH 30.6 pg (27.0-31.0) 08/22/17 04:25 MCHC 33.7 g/dL (33.0-37.0) 08/22/17 04:25 RDW 12.5 % (11.5-14.5) 08/22/17 04:25 Plt Count 220 K/uL (130-400) 08/22/17 04:25 MPV 8.5 fl (7.2-11.7) 08/20/17 18:08 Neut % (Auto) 81.9 % (50.0-75.0) H 08/20/17 18:08 Lymph % (Auto) 11.3 % (20.0-40.0) L 08/20/17 18:08 [place] % (Auto) 6.7 % (0.0-10.0) 08/20/17 18:08 Eos % (Auto) 0.0 % (0.0-4.0) 08/20/17 18:08 Baso % (Auto) 0.1 % (0.0-2.0) 08/20/17 18:08 Neut # 12.7 K/uL (1.8-7.0) H 08/20/17 18:08 Lymph # 1.8 K/uL (1.0-4.3) 08/20/17 18:08 [place] # 1.0 K/uL (0.0-0.8) H 08/20/17 18:08 Eos # 0.0 K/uL (0.0-0.7) 08/20/17 18:08 Baso # 0.0 K/uL (0.0-0.2) 08/20/17 18:08 PT 10.8 Seconds (9.8-13.1) 08/20/17 18:08 INR 1.0 (0.9-1.2) 08/20/17 18:08 APTT 26.5 Seconds (25.6-37.1) 08/20/17 18:08 pO2 31 mm/Hg (30-55) 08/20/17 17:58 VBG pH 7.30 (7.32-7.43) L 08/20/17 17:58 VBG pCO2 51 mmHg (40-60) 08/20/17 17:58 VBG HCO3 22.1 mmol/L 08/20/17 17:58 VBG Total CO2 26.7 mmol/L (22-28) 08/20/17 17:58 VBG O2 Sat (Calc) 61.7 % (40-65) 08/20/17 17:58 VBG Base Excess -2.0 mmol/L (0.0-2.0) L 08/20/17 17:58 VBG Potassium 3.6 mmol/L (3.6-5.2) 08/20/17 17:58 Sodium 140.0 mmol/L (132-148) 08/20/17 17:58 Chloride 100.0 mmol/L (98-107) 08/20/17 17:58 Glucose 147 mg/dL (65-105) H 08/20/17 17:58 Lactate 1.4 mmol/L (0.7-2.1) 08/20/17 17:58 FiO2 21.0 % 08/20/17 17:58 Sodium 144 mmol/l (132-148) 08/22/17 04:25 Potassium 3.3 MMOL/L (3.6-5.0) L 08/22/17 04:25 Chloride 110 mmol/L (98-107) H 08/22/17 04:25 Carbon Dioxide 27 mmol/L (22-30) 08/22/17 04:25 Anion Gap 10 (10-20) 08/22/17 04:25 BUN 8 mg/dl (7-17) 08/22/17 04:25 Creatinine 0.9 mg/dl (0.7-1.2) 08/22/17 04:25 Est GFR ( Amer) > 60 08/22/17 04:25 Est GFR (Non-Af Amer) > 60 08/22/17 04:25 Random Glucose 110 mg/dL (65-105) H 08/22/17 04:25 Calcium 8.4 mg/dL (8.4-10.2) 08/22/17 04:25 Total Bilirubin 0.3 mg/dl (0.2-1.3) 08/22/17 04:25 AST 35 U/L (14-36) 08/22/17 04:25 ALT 36 U/L (9-52) 08/22/17 04:25 Alkaline Phosphatase 49 U/L (38-126) 08/22/17 04:25 Troponin I 0.0140 ng/mL (0.00-0.120) 08/21/17 04:20 Total Protein 5.6 G/DL (6.3-8.2) L 08/22/17 04:25 Albumin 2.9 g/dL (3.5-5.0) L D 08/22/17 04:25 Globulin 2.6 gm/dL (2.2-3.9) 08/22/17 04:25 Albumin/Globulin Ratio 1.1 (1.0-2.1) 08/22/17 04:25 TSH 3rd Generation 5.88 mIU/ML (0.46-4.68) H 08/22/17 04:25 Venous Blood Potassium 3.6 mmol/L (3.6-5.2) 08/20/17 17:58 Urine Color Sharmin (YELLOW) 08/22/17 09:00 Urine Clarity Cloudy (Clear) 08/22/17 09:00 Urine pH 6.0 (5.0-8.0) 08/22/17 09:00 Ur Specific [place] 1.016 (1.003-1.030) 08/22/17 09:00 Urine Protein Negative mg/dL (NEGATIVE) 08/22/17 09:00 Urine Glucose (UA) Neg mg/dL (Normal) 08/22/17 09:00 Urine Ketones Negative mg/dL (NEGATIVE) 08/22/17 09:00 Urine Blood Negative (NEGATIVE) 08/22/17 09:00 Urine Nitrate Negative (NEGATIVE) 08/22/17 09:00 Urine Bilirubin Negative (NEGATIVE) 08/22/17 09:00 Urine Urobilinogen 0.2-1.0 mg/dL (0.2-1.0) 08/22/17 09:00 Ur Leukocyte Esterase Small Shaheed/uL (Negative) 08/22/17 09:00 Urine RBC (Auto) 1 /hpf (0-3) 08/22/17 09:00 Urine Microscopic WBC 7 /hpf (0-5) H 08/22/17 09:00 Ur Squamous Epith Cells 13 /hpf (0-5) H 08/22/17 09:00 Urine Bacteria Rare (<OCC) 08/22/17 09:00 Alcohol, Quantitative < 10 mg/dl (0-10) 08/20/17 18:08 - Hospital Course Hospital Course: 67 y/o lady with hx of HTN, Hyperlipidemia, Hypothyroidism, was brought in after a fall. Patient has been having diarrhea the past few days , felt very weak and had a syncopal episode in the bathroom. Patient improved today, diarrhea also resolved. Stable to be discharged home [facility] follow up PCP and PO Cipro and Flagyl. (1) Syncope and collapse likely sec to Volume Depletion/Dehydration -IVF hydration - CT of head negative, no hemorrhage - Troponin negative x 2 (2) Colitis Status: Acute Pt had diarrhea , N/V CT of abd : Colitis changes Leukocytosis 15K on admisison cont po Cipro and Flagyl stool culture, WBC, O&P ID consult - Dr Draper 3. Fall , Hip Pain CT of head neg Hip and Pelvic xray PT consult (4) HTN (hypertension) Status: Acute hold off antihypertensive due to low BP 5. Hypothyroidism check TSH cont Levothyroxine- will ask to bring in med as pt could not remember dose 6. Anxiety -cont Xanax prn ( pt takes 0.25 mg prn at home ) Discharge Exam - Head Exam Head Exam: NORMAL INSPECTION, NORMOCEPHALIC - Eye Exam Eye Exam: EOMI, Normal appearance, PERRL Pupil Exam: NORMAL ACCOMODATION - ENT Exam ENT Exam: Mucous Membranes Moist, Normal Oropharynx - Respiratory Exam Respiratory Exam: Clear to PA & Lateral, NORMAL BREATHING PATTERN, UNREMARKABLE - Cardiovascular Exam Cardiovascular Exam: RRR, +S1, +S2 - GI/Abdominal Exam GI & Abdominal Exam: Normal Bowel Sounds, Soft. absent: Mass, Tenderness - Extremities Exam Extremities exam: normal capillary refill, pedal pulses present - Back Exam Back exam: absent: CVA tenderness (L), CVA tenderness (R) - Neurological Exam Neurological exam: Alert, Oriented x3 - Psychiatric Exam Psychiatric exam: Normal Affect, Normal Mood - Skin Skin Exam: Dry, Warm Discharge Plan - Discharge Medications Prescriptions: Ciprofloxacin HCl [Cipro] 500 mg PO Q12H #20 tablet Levothyroxine [Synthroid] 88 mcg PO DAILY@0630 #30 tab Metronidazole [Flagyl] 500 mg PO Q8H #30 tab - Follow Up Plan Condition: FAIR Disposition: HOME/ ROUTINE Instructions: Infectious Colitis (GEN) Additional Instructions: Please follow up with Primary Care provider Dr. Maribeth Frederick Friday 08/25 at the time scheduled. Finish the prescribed antibiotics as directed with plenty of fluids. Follow directions given on good hand washing technique at home. If experiences severe abdominal pain with nausea/vomiting/diarrhea return to Emergency room.
[2017-08-22 12:17] VITALS: BP 104/62; PULSE 59; TEMP 98; O2SAT 100
[2017-08-22] MEDS ORDERED: Potassium Chloride 20 mEq ER Tab PO ONE (14:10)
== END 2017-08-22 15:45 | disposition home or self-care (01) | DRG 391 ==
LOC: H.ER 17:19 → H.ERHOLD 21:22 → H.TEL 23:09
PROVIDERS: ADMIT Internal Medicine; ATTEND Internal Medicine
DX: K52.9 Noninfective gastroenteritis and colitis, unspecified (principal); R57.1 Hypovolemic shock; S06.9X9A Unspecified intracranial injury with loss of consciousness of unspecified duration, initial encounter; E86.0 Dehydration; F41.9 Anxiety disorder, unspecified; I10 Essential (primary) hypertension; M81.0 Age-related osteoporosis without current pathological fracture; W18.30XA Fall on same level, unspecified, initial encounter; Y93.9 Activity, unspecified; Y92.002 Bathroom of unspecified non-institutional (private) residence as the place of occurrence of the external cause; E05.90 Thyrotoxicosis, unspecified without thyrotoxic crisis or storm; F45.9 Somatoform disorder, unspecified; M25.551 Pain in right hip; R93.1 Abnormal findings on diagnostic imaging of heart and coronary circulation; E03.9 Hypothyroidism, unspecified; E78.00 Pure hypercholesterolemia, unspecified; E78.5 Hyperlipidemia, unspecified

== ENCOUNTER 2017-09-30 20:04 | Emergency (ER) | payer MEDICARE ==
[2017-09-30 20:13] VITALS: TEMP 98.1
--- NOTE | 2017-09-30 20:29 | ED PDOC ---
HPI: Hypertension/Hypotension Time Seen by Provider: 09/30/17 20:26 Chief Complaint (Nursing): High Blood Pressure Chief Complaint (Provider): headache History Per: Patient (67 y/o male here for evaluation of elevated blood pressure. Patient has noted elevated blood pressure despite repeated checking of blood pressure today. Notes headache and 1 episode of vomiting today. patient is very anxious and attempted use of xanax but states she vomited at time. Seen by pmd yesterday. On metoprolol and restarted her hyzaar yesterday.) Past Medical History Reviewed: Historical Data, Nursing Documentation, Vital Signs Vital Signs: Last Vital Signs Temp 98.1 F 09/30/17 20:08 Pulse 91 H 09/30/17 20:08 Resp 18 09/30/17 20:08 BP 144/99 H 09/30/17 20:08 Pulse Ox 98 09/30/17 20:08 - Medical History PMH: Anxiety, HTN, Hypercholesterolemia, Hyperlipidemia, Hyperthyroidism, Hypothyroidism, Osteoporosis Denies: HIV, Chronic Kidney Disease - Surgical History Surgical History: Tonsillectomy - Family History Family History: States: Unknown Family Hx - Home Medications Home Medications: Ambulatory Orders Medication Instructions Recorded Cholecalciferol (Vitamin D3) 1 tab PO DAILY 08/20/17 [Vitamin D3] Fenofibrate [Triglide] 160 mg PO DAILY 08/20/17 Losartan/Hydrochlorothiazide 1 each PO DAILY 08/20/17 [Losartan-Hctz 100-25 mg Tab] Metoprolol Succinate [Toprol XL] 50 mg PO DAILY 08/20/17 Ciprofloxacin HCl [Cipro] 500 mg PO Q12H #20 tablet 08/22/17 Levothyroxine [Synthroid] 88 mcg PO DAILY@0630 #30 tab 08/22/17 Metronidazole [Flagyl] 500 mg PO Q8H #30 tab 08/22/17 - Allergies Allergies/Adverse Reactions: Allergies Allergy/AdvReac Type Severity Reaction Status Date / Time No Known Allergies Allergy Verified 08/20/17 17:22 Review of Systems ROS Statement: Except As Marked, All Systems Reviewed And Found Negative Physical Exam - Reviewed Nursing Documentation Reviewed: Yes Vital Signs Reviewed: Yes - Physical Exam Appears: Positive for: Well, Non-toxic, No Acute Distress Head Exam: Positive for: ATRAUMATIC, NORMAL INSPECTION, NORMOCEPHALIC Skin: Positive for: Normal Color, Warm, DRY Eye Exam: Positive for: EOMI, Normal appearance, PERRL ENT: Positive for: Normal ENT Inspection Neck: Positive for: Normal, Painless ROM Cardiovascular/Chest: Positive for: Regular Rate, Rhythm Respiratory: Positive for: CNT, Normal Breath Sounds Gastrointestinal/Abdominal: Positive for: Normal Exam, Bowel Sounds, Soft Back: Positive for: Normal Inspection Extremity: Positive for: Normal ROM Neurologic/Psych: Positive for: Alert, Oriented, Other (patient noted tremulous/ ) - Laboratory Results Result Diagrams: 09/30/17 20:56 09/30/17 20:56 - ECG O2 Sat by Pulse Oximetry: 98 - Progress ED Course And Treament: KDUR 40 MEQ X [address]: NAD NS 1 LITER 500 ML PER HOUR REPEAT BP 133/90 Disposition - Clinical Impression Clinical Impression: Anxiety, Hypokalemia, Hypertension - Patient ED Disposition Is Patient to be Admitted: No - Disposition Disposition: Routine/Home Disposition Time: 00:38 Condition: FAIR Instructions: Hypokalemia, Anxiety, Adult (DC), High Blood Pressure in Adults Forms: [employer] (Citizen Of [place]) Print Language: NIUEAN
[2017-09-30 21:03] LABS: BASO % 0.5 % (0.0-2.0); EOS # 0.1 K/uL (0.0-0.7); EOS % 0.8 % (0.0-4.0); HEMOGLOBIN 13.6 g/dL (12.0-16.0); LYMPH # 1.2 K/uL (1.0-4.3); LYMPH % 14.5 % (20.0-40.0); MEAN CELL VOLUME 88.6 fl (81.0-99.0); MEAN CORPUSCULAR HEMOGLOBIN 30.9 pg (27.0-31.0); MEAN CORPUSCULAR HGB CONC 34.9 g/dL (33.0-37.0); MEAN PLATELET VOLUME 7.7 fl (7.2-11.7); MONO # 0.5 K/uL (0.0-0.8); MONO % 5.7 % (0.0-10.0); NEUT # 6.3 K/uL (1.8-7.0); NEUT % 78.5 % (50.0-75.0); RBC 4.4 Mil/uL (3.80-5.20); RED CELL DISTRIBUTION WIDTH 12.5 % (11.5-14.5)
[2017-09-30 21:32] LABS: ALB/GLOB RATIO 1.2 (1.0-2.1); ALBUMIN 4.4 g/dL (3.5-5.0); ALT/SGPT 36 U/L (9-52); AST/SGOT 30 U/L (14-36); BLOOD UREA NITROGEN 14 mg/dl (7-17); CALCIUM 9.9 mg/dL (8.4-10.2); GFR AFRICAN-AMERICAN > 60; GFR NON-AFRICAN AMERICAN > 60
[2017-09-30 21:37] LABS: SQUAMOUS EPITHIAL 1 /hpf (0-5); URINE BILIRUBIN NEGATIVE (NEGATIVE); URINE BLOOD NEGATIVE (NEGATIVE); URINE CLARITY SLIGHTY-CLOUDY (Clear); URINE COLOR YELLOW (YELLOW); URINE GLUCOSE (UA) NEG (Normal); URINE LEUKOCYTE ESTERASE NEG Leu/uL (Negative); URINE NITRATE NEGATIVE (NEGATIVE); URINE PROTEIN NEGATIVE (NEGATIVE); URINE UROBILINOGEN 0.2-1.0 mg/dL (0.2-1.0)
--- NOTE | 2017-09-30 22:30 | CT ---
EXAM: CT Head Without Intravenous Contrast CLINICAL HISTORY: 67 years old, female; Pain; Headache; Other: Mckeon's dizzy; Prior surgery; Surgery date: 6+ months; Surgery type: Tonsillectomy; Patient HX: HTN thyroid dx. High cholesterol. Anxiety TECHNIQUE: Axial computed tomography images of the head/brain without intravenous contrast. All CT scans at this facility use one or more dose reduction techniques, viz.: automated exposure control; ma/kV adjustment per patient size (including targeted exams where dose is matched to indication; i.e. head); or iterative reconstruction technique. Coronal and sagittal reformatted images were created and reviewed. COMPARISON: CT - HEAD W/O CONTRAST 2017-08-20 17:49 FINDINGS: Brain: Unremarkable. No significant white matter disease. No edema. No intracranial mass, mass effect, or midline shift. Ventricles: Unremarkable. No ventriculomegaly. Bones/joints: Unremarkable. No acute fracture. Soft tissues: Unremarkable. Sinuses: Unremarkable as visualized. No acute sinusitis. Mastoid air cells: Unremarkable as visualized. No mastoid effusion. IMPRESSION: No acute intracranial abnormality.
[2017-09-30] MEDS ORDERED: Potassium Chloride 20 mEq ER Tab PO ONE ×2 (23:37→23:38)
[2017-09-30] MEDS ORDERED: Sodium Chloride 0.9% 1,000 ML IV STA (23:38)
[2017-10-01 00:29] VITALS: BP 133/90; PULSE 64; RESP 14
[2017-10-01 00:39] VITALS: O2SAT 98
== END 2017-10-01 01:07 | disposition home or self-care (01) ==
LOC: H.ER 20:04
DX: I10 Essential (primary) hypertension (principal); E87.6 Hypokalemia; F41.9 Anxiety disorder, unspecified; E03.9 Hypothyroidism, unspecified; E05.90 Thyrotoxicosis, unspecified without thyrotoxic crisis or storm; E78.00 Pure hypercholesterolemia, unspecified; M81.0 Age-related osteoporosis without current pathological fracture
CPT/HCPCS: 70450; 80053; 81003; 84484; 85025; 96374; 99284; G0480; J2060; J7040